=== PATIENT | female | born 1980 | race African-American/Black ===

== ENCOUNTER → 2020-06-21 | Outpatient (CLI) | payer OTHER ==
[2020-06-21 16:29] LABS: BASO # 0.1 10^3/uL (0.0-0.2); BASO % 0.9 % (0.0-1.0); EOS # 0.3 10^3/uL (0.0-0.5); EOS % 3.7 % (0.0-3.0); HEMATOCRIT 35.9 % (36.0-47.0); HEMOGLOBIN 11.6 g/dl (12.0-15.5); LYMPH # 2.1 10^3/uL (1.5-5.0); LYMPH % 31.1 % (24.0-44.0); MEAN CORPUSCULAR HEMOGLOBIN 24.9 pg (27.0-33.0); MEAN CORPUSCULAR HGB CONC 32.3 g/dl (32.0-36.5); MONO # 0.7 10^3/uL (0.0-0.8); MONO % 10.5 % (0.0-5.0); NEUTROPHILS # 3.6 10^3/uL (1.5-8.5); NEUTROPHILS % 53.5 % (36.0-66.0); PLATELET COUNT, AUTOMATED 269 10^3/uL (150-450); RED BLOOD COUNT 4.66 10^6/uL (4.00-5.40); WHITE BLOOD COUNT 6.8 10^3/uL (4.0-10.0)
[2020-06-21 17:08] LABS: BLOOD UREA NITROGEN 11 MG/DL (7-18); CALCIUM LEVEL 9.1 MG/DL (8.5-10.1); CARBON DIOXIDE LEVEL 26 MEQ/L (21-32); CHLORIDE LEVEL 106 MEQ/L (98-107); CREATININE FOR GFR 0.98 MG/DL (0.55-1.30); FERRITIN 17 NG/ML (8-252); FOLATE 13.2 NG/ML; FREE T4 0.96 NG/DL (0.76-1.46); GLOMERULAR FILTRATION RATE > 60.0 (>60); GLUCOSE, FASTING 67 MG/DL (70-100); IRON (FE) 68 UG/DL (50-170); POTASSIUM SERUM 4.3 MEQ/L (3.5-5.1); SODIUM LEVEL 137 MEQ/L (136-145); TOTAL IRON BINDING CAPACITY 357 UG/DL (250-450); VITAMIN B12 LEVEL 814 PG/ML
== END ==
LOC: M LAB 15:35
PROVIDERS: ATTEND Nurse Practitioner Family
DX: R42 Dizziness and giddiness (principal)

== ENCOUNTER → 2020-12-05 | Outpatient (REF) | payer OTHER | LOC: M LAB REF 17:16 | PROVIDERS: ATTEND Physician Assistant Medical | DX: Z12.4 Encounter for screening for malignant neoplasm of cervix (principal) ==

== ENCOUNTER → 2020-12-09 | Outpatient (CLI) | payer OTHER ==
--- NOTE | 2020-12-09 14:13 | REPMRS ---
Patient History The patient states she had a clinical breast exam in 11/2020 Baseline Mammogram Patient had first child at age 38. No known family history of cancer. Digital Woman Screen Mammo: December 09, 2020 - Exam #: [id number] Bilateral CC and MLO view(s) were taken. Technologist: Sharla Orellana, Technologist No prior studies available for comparison. FINDINGS: There are scattered fibroglandular densities. The Volpara volumetric breast density category is: B. There is no evidence of dominant mass, architectural distortion, or grouped microcalcification typical of malignancy. 3-D tomosynthesis shows no additional findings. Assessment: BI-RADS/ACR category 1 mammogram. Negative Mammogram. Recommendation Routine screening mammogram of both breasts in 1 year (for women over age 40). This patient's [facility] Lifetime Breast Cancer RIsk is estimated at 13.6 %. This mammogram was interpreted with the aid of an FDA-approved computer-aided dectection system. Electronically Signed By: Bill Serrato MD 12/09/20 4624
== END ==
LOC: M WHC 12:30
PROVIDERS: ATTEND Physician Assistant Medical
DX: Z12.31 Encounter for screening mammogram for malignant neoplasm of breast (principal)

== ENCOUNTER → 2021-02-15 | Outpatient (REF) ==
[2021-02-16 05:07] LABS: HERPES ZOSTER, VARICELLA IgG 1285 index (Immune >165); RUBEOLA IgG ANTIBODY >300.0 AU/mL (Immune >16.4)
== END ==
LOC: M LAB 12:11
PROVIDERS: ATTEND Nurse Practitioner Adult Health
DX: Z02.89 Encounter for other administrative examinations (principal)

== ENCOUNTER 2021-08-26 06:49 | Emergency (ER) | payer OTHER ==
[~2021-08-26] VITALS: Ht 157.5 cm; Wt 56.8 kg
--- OUTSIDE RECORDS SUMMARY | 2021-08-26 06:56 | CCD ---
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 Name Role Phone Amariancostgabo Glynn Wilma PA-C Unavailable Unavailabl e Petrancosta, Glynn Wilma PA-C Unavailable Unavailabl e Petrancosta, Glynn Wilma PA-C Unavailable Unavailabl e Petrancosta, Glynn Wilma PA-C Unavailable Unavailabl e Petrancosta, Glynn Wilma PA-C Unavailable Unavailabl e Petrancosta, Glynn Wilma PA-C Unavailable Unavailabl e Petrancosta, Glynn Wilma PA-C Unavailable Unavailabl e Petrancosta, Glynn Wilma PA-C Unavailable Unavailabl e Petrancosta, Glynn Wilma PA-C Unavailable Unavailabl e Petrancosta, Glynn Wilma PA-C Unavailable Unavailabl e Petrancosta, Glynn Wilma PA-C Unavailable Unavailabl e Petrancosta, Glynn Wilma PA-C Unavailable Unavailabl e Petrancosta, Glynn Wilma PA-C Unavailable Unavailabl e Petrancosta, Glynn Wilma PA-C Unavailable Unavailabl e Petrancosta, Glynn Wilma PA-C Unavailable Unavailabl e Petrancosta, Glynn Wilma PA-C Unavailable Unavailabl e Petrancosta, Glynn Wilma PA-C Unavailable Unavailabl e Petrancosta, Glynn Wilma PA-C Unavailable Unavailabl e Petrancosta, Glynn Wilma PA-C Unavailable Unavailabl e Petrancosta, Glynn Wilma PA-C Unavailable Unavailabl e Petrancosta, Glynn Wilma PA-C Unavailable Unavailabl e Petrancosta, Nelson Cortésa PA-C Unavailable Unavailabl e Petrancosta, Nelson Dillon PA-C Unavailable Unavailabl e Petrancosta, Nelson Cortésa PA-C Unavailable Unavailabl e Petrancosta, Nelson Dillon PA-C Unavailable Unavailabl e Re-disclosure Warning The records that you are about to access may contain information from federally-assisted alcohol or drug abuse programs. If such information is present, then the following federally mandated warning applies: This information has been disclosed to you from records protected by federal confidentiality rules (42 CFR part 2). The federal rules prohibit you from making any further disclosure of this information unless further disclosure is expressly permitted by the written consent of the person to whom it pertains or as otherwise permitted by 42 CFR part 2. A general authorization for the release of medical or other information is NOT sufficient for this purpose. The Federal rules restrict any use of the information to criminally investigate or prosecute any alcohol or drug abuse patient.The records that you are about to access may contain highly sensitive health information, the redisclosure of which is protected by Article 27-F of the [facility] Public Health law. If you continue you may have access to information: Regarding HIV / AIDS; Provided by facilities licensed or operated by the [facility] Office of Mental Health; or Provided by the [facility] Office for People With Developmental Disabilities. If such information is present, then the following [facility] mandated warning applies: This information has been disclosed to you from confidential records which are protected by state law. State law prohibits you from making any further disclosure of this information without the specific written consent of the person to whom it pertains, or as otherwise permitted by law. Any unauthorized further disclosure in violation of state law may result in a fine or fdc sentence or both. A general authorization for the release of medical or other information is NOT sufficient authorization for further disc losure. Encounters Encounter Providers Location Date Indications Data Source(s ) Outpatient Attender: Wilma Vinay MARTINEZ Main Office 12/05/2020 02:00:00 PM EDT [facility] ([facility] Immunizations Vaccine Date Status Description Data Source(s) COVID-19 VACCINE Moderna 01/02/2021 12:00:00 AM EDT completed [facility]IS Vaccine Series Complete: NOThis Data was Submitted to [facility] Via [employer]. COVID-19 VACCINE Moderna 01/02/2021 12:00:00 AM EDT completed [facility]IS Vaccine Series Complete: NOThis Data was Submitted to [facility] Via [employer]. COVID-19 VACCINE Moderna 01/02/2021 12:00:00 AM EDT completed [facility]IS Vaccine Series Complete: NOThis Data was Submitted to [facility] Via [employer]. COVID-19 VACCINE Moderna 01/02/2021 12:00:00 AM EDT completed NYSIIS Vaccine Series Complete: NOThis Data was Submitted to [facility] Via [employer]. Medications Medication Brand Name Start Date Product Form Dose Route Admi nistrative Instructions Pharmacy Instructions Status Indications Reaction Description Data Source(s) No Active Medications 12/05/2020 12:00:00 AM EDT active [facility] ([facility] Atovaquone 250 MG / proguanil hydrochloride 100 MG Ora l Tablet Atovaquone/Proguanil Hydrochloride 06/21/2020 12:00:00 AM EDT ORAL completed [facility] Typhoid Vaccine Live Ty21a [id number] UN T Delayed Release Oral Capsule [Vivotif] Vivotif 06/21/2020 12:00:00 AM EDT completed [facility] ([facility] Insurance Providers Payer name Policy type / Coverage type Policy ID Covered democrat ID Covered democrat's relationship to bennett Policy Bennett Plan Information [facility] [id number] SP [id number] [facility] [id number] SP [id number] Problems, Conditions, and Diagnoses No Information Surgeries/Procedures Procedure Description Date Indications Data Source(s) Mammogram 12/09/2020 12:00:00 AM EDT M [facility] ([facility] Results ID Date Data Source [id number] 08/17/2021 12:00:00 AM EST [facility] Name Value Range Interpretation Code Description Data Erin rce(s) Supporting Document(s) SARS coronavirus 2 Ag NEGATIVE [facility]OH [facility] and reported by [facility]. ID Date Data Source -[id number] 08/01/2021 12:00:00 AM EST [facility] Name Value Range Interpretation Code Description Data Erin rce(s) Supporting Document(s) SARS coronavirus 2 Ag NEGATIVE [facility]OH This lab was ordered by [facility] and reported by [facility]. ID Date Data Source [id number]/25/2021 12:00:00 AM EST [facility] Name Value Range Interpretation Code Description Data Erin rce(s) Supporting Document(s) SARS coronavirus 2 Ag NEGATIVE [facility]OH This lab was ordered by [facility] and reported by [facility]. ID Date Data Source 07/11/2021 12:00:00 AM EDT [facility] Name Value Range Interpretation Code Description Data Erin rce(s) Supporting Document(s) SARS coronavirus 2 Ag NEGATIVE [facility]OH This lab was ordered by [facility] and reported by [facility]. ID Date Data Source 07/06/2021 12:00:00 AM EDT [facility] Name Value Range Interpretation Code Description Data Erin rce(s) Supporting Document(s) SARS coronavirus 2 Ag NEGATIVE [facility] This lab was ordered by [facility] and reported by [facility]. ID Date Data Source 07/04/2021 12:00:00 AM EDT [facility] Name Value Range Interpretation Code Description Data Erin rce(s) Supporting Document(s) SARS coronavirus 2 Ag NEGATIVE [facility] This lab was ordered by [facility] and reported by [facility]. ID Date Data Source -[id number]/27/2021 12:00:00 AM EDT [facility] Name Value Range Interpretation Code Description Data Erin rce(s) Supporting Document(s) SARS coronavirus 2 Ag NEGATIVE [facility] This lab was ordered by [facility] and reported by [facility]. ID Date Data Source [id number] 06/20/2021 12:00:00 AM EDT [facility] Name Value Range Interpretation Code Description Data Erin rce(s) Supporting Document(s) SARS coronavirus 2 Ag NEGATIVE [facility]OH This lab was ordered by [facility] and reported by [facility]. ID Date Data Source 06/13/2021 12:00:00 AM EDT [facility] Name Value Range Interpretation Code Description Data Erin rce(s) Supporting Document(s) SARS coronavirus 2 Ag NEGATIVE [facility] This lab was ordered by [facility] and reported by [facility]. ID Date Data Source 06/06/2021 12:00:00 AM EDT [facility] Name Value Range Interpretation Code Description Data Erin rce(s) Supporting Document(s) SARS coronavirus 2 Ag NEGATIVE [facility] This lab was ordered by [facility] and reported by [facility]. ID Date Data Source 05/25/2021 12:00:00 AM EDT [facility] Name Value Range Interpretation Code Description Data Erin rce(s) Supporting Document(s) SARS coronavirus 2 Ag NEGATIVE [facility]OH This lab was ordered by [facility] and reported by [facility]. ID Date Data Source 02/23/2021 12:00:00 AM EDT [facility]OH Name Value Range Interpretation Code Description Data Erin rce(s) Supporting Document(s) SARS coronavirus 2 Ag NEGATIVE [facility] This lab was ordered by [facility] and reported by [facility]. ID Date Data Source 02/20/2021 12:00:00 AM EDT [facility] Name Value Range Interpretation Code Description Data Erin rce(s) Supporting Document(s) SARS coronavirus 2 Ag NEGATIVE [facility] This lab was ordered by [facility] and reported by [facility]. ID Date Data Source [id number]/14/2021 12:00:00 AM EDT [facility] Name Value Range Interpretation Code Description Data Erin rce(s) Supporting Document(s) SARS coronavirus 2 Ag NEGATIVE [facility] This lab was ordered by [facility] and reported by [facility]. ID Date Data Source [id number] 12/05/2020 02:44:00 PM EDT [facility] Name Value Range Interpretation Code Description Data Erin rce(s) Supporting Document(s) Cytology Cervical or vaginal smear or scraping study Laboratory lisset t result [facility] ([facility] Addendum 1 Entered: 12/12/2020-1432 The HPV test is positive for one or more high risk types, test performed at [address] [address]. 12/12/20201431 Addendum Signed____ MAJO SERRA CT (ASCP) 12/12/2020 1440 SPECIMEN ADEQUACY: Satisfactory for evaluation CATEGORIZATION: Negative for Intraepithelial Lesion or Malignancy Infection: Reactive Changes: SQUAMOUS CELL: GLANDULAR CELL: COMMENTS: HPV test submitted. The cervical PAP smear is a screening test. Both false positive and false negative results occur. A negative PAP smear does not preclude dysplasia or malignancy. Clinical correlation is required in every case. Further diagnostic procedures may be clinically indicated even if a PAP smear is interpreted as within normal limits. 12/06/20208[address](ASCP) 12/06/2020 0913 ID Date Data Source [id number] 12/05/2020 10:00:00 AM EDT [facility] ([facility] Name Value Range Interpretation Code Description Data Erin rce(s) Supporting Document(s) HPV Screen (High Risk Only) Laboratory test result Abnormal (applies to non- numeric results) [facility] ([facility] This nucleic acid amplification test det ects fourteen high- risk HPV types (16,18,31,33,35,39,45,51,52,56,58,59,66,68) without differentiation. Performed at: RN - [facility] [address] [id number] Director Community Center: Amy Miranda MD, Phone: [phone] Procedure Social History Code Duration Value Status Description Data Source(s ) Smoking 12/05/2020 12:00:00 AM EDT Patient has never smoked co mpleted Patient has never smoked [facility] Vital Signs ID Date Data Source UNK Name Value Range Interpretation Code Description Data Source(s) Body height 61 [in_i] 61 [in_i] [facility] 5'1" Body weight 151.12 [lb_av] 151.12 [lb_av] [facility] T ([facility] Oxygen saturation in Arterial blood by Pulse oximetry 98 % 98 % [facility] [place] body weight 105 [lb_av] 105 [lb_av] [facility] T ([facility] Body mass index (BMI) [Ratio] 28.6 kg/m2 28.6 k g/m2 [facility] Systolic blood pressure 97 mm[Hg] 97 mm[Hg] M [facility] ([facility] Diastolic blood pressure 60 mm[Hg] 60 mm[Hg] [facility] Heart rate 80 /min 80 /min [facility] Body temperature 97.1 [degF] 97.1 [degF] [facility] Respiratory rate 16 /min 16 /min [facility] ( [facility]
[2021-08-26] MEDS ORDERED: PROPARACAINE 0.5% OPHTH SOL 15ML OS ONE (07:40)
[2021-08-26] MEDS ORDERED: FLUORESCEIN OPHTH 1 MG STRIP OS ONE (07:40)
[2021-08-26] MEDS ORDERED: PERCOCET 5MG/325MG TAB PO ONE (07:45)
--- OUTSIDE RECORDS SUMMARY | 2021-08-26 07:48 | CCD ---
Author Author [facility] Organization [facility] Address Unknown Phone Unavailable Care Team Providers Care Loan Teller Name Role Phone Amariancostgabo Mason Wilma PA-C Unavailable Unavailabl e Petrancosta, Mason Wilma PA-C Unavailable Unavailabl e Petrancosta, Mason Wilma PA-C Unavailable Unavailabl e Petrancosta, Mason Wilma PA-C Unavailable Unavailabl e Petrancosta, Mason Wilma PA-C Unavailable Unavailabl e Petrancosta, Mason Wilma PA-C Unavailable Unavailabl e Petrancosta, Mason Wilma PA-C Unavailable Unavailabl e Petrancosta, Mason Wilma PA-C Unavailable Unavailabl e Petrancosta, Mason Wilma PA-C Unavailable Unavailabl e Petrancosta, Mason Wilma PA-C Unavailable Unavailabl e Petrancosta, Mason Wilma PA-C Unavailable Unavailabl e Petrancosta, Mason Wilma PA-C Unavailable Unavailabl e Petrancosta, Mason Wilma PA-C Unavailable Unavailabl e Petrancosta, Mason Wilma PA-C Unavailable Unavailabl e Petrancosta, Mason Wilma PA-C Unavailable Unavailabl e Petrancosta, Mason Wilma PA-C Unavailable Unavailabl e Petrancosta, Mason Wilma PA-C Unavailable Unavailabl e Petrancosta, Mason Wilma PA-C Unavailable Unavailabl e Petrancosta, Mason Wilma PA-C Unavailable Unavailabl e Petrancosta, Mason Wilma PA-C Unavailable Unavailabl e Petrancosta, Mason Wilma PA-C Unavailable Unavailabl e Petrancosta, Nelson [...] is protected by Article 27-F of the [facility] Public Health law. If you continue you may have access to information: Regarding HIV / AIDS; Provided by facilities licensed or operated by the [facility] Office of Mental Health; or Provided by the [facility] Office for People With Developmental Disabilities. If such information is present, then the following [facility] mandated warning applies: This information has been [...] law may result in a fine or [place] health [place] sentence or both. A general authorization for [...] Series Complete: NOThis Data was Submitted to [facility] Via [employer]. COVID-19 VACCINE Moderna 01/02/2021 12:00:00 AM EDT completed [facility]SIIS Vaccine Series Complete: NOThis Data was Submitted to [facility] Via [employer]. COVID-19 VACCINE Moderna 01/02/2021 12:00:00 AM EDT completed [facility]IS Vaccine Series Complete: NOThis Data was Submitted to [facility] Via [employer]. COVID-19 VACCINE Moderna 01/02/2021 12:00:00 AM EDT completed [facility]SIIS Vaccine Series Complete: NOThis Data was Submitted to [facility] Via [employer]. Medications Medication Brand Name Start Date Product Form Dose Route Admi nistrative Instructions Pharmacy Instructions Status Indications Reaction Description Data Source(s) No Active Medications 12/05/2020 12:00:00 AM EDT active [facility] Atovaquone 250 MG / proguanil hydrochloride 100 MG Ora l Tablet Atovaquone/Proguanil Hydrochloride 06/21/2020 12:00:00 AM EDT ORAL completed [facility] Typhoid Vaccine Live Ty21a [id number] UN T Delayed Release Oral Capsule [Vivotif] Vivotif 06/21/2020 12:00:00 AM EDT completed [facility] Insurance Providers Payer name Policy type / Coverage type Policy ID Covered libertarian ID Covered libertarian's relationship to bennett Policy Bennett Plan Information [facility] [id number] SP [id number] [facility] [id number] SP [id number] Problems, Conditions, and Diagnoses No Information Surgeries/Procedures Procedure Description Date Indications Data Source(s) Mammogram 12/09/2020 12:00:00 AM EDT M [facility] ([facility] Results ID Date Data Source [id number] 08/17/2021 12:00:00 AM EST [facility] Name Value Range Interpretation Code Description Data Erin rce(s) Supporting Document(s) SARS coronavirus 2 Ag NEGATIVE [facility] and [facility] by [facility]. ID Date Data Source -[id number] 08/01/2021 12:00:00 AM EST [facility] Name Value Range Interpretation Code Description Data Erin rce(s) Supporting Document(s) SARS coronavirus 2 Ag NEGATIVE [facility] This lab was ordered by [facility] and reported by [facility]. ID Date Data Source [id number]/25/2021 12:00:00 AM EST [facility] Name Value Range Interpretation Code Description Data Erin rce(s) Supporting Document(s) SARS coronavirus 2 Ag NEGATIVE [facility] This lab was ordered by [facility] and reported by [facility]. ID Date Data Source 07/11/2021 12:00:00 AM EDT [facility] Name Value Range Interpretation Code Description Data Erin rce(s) Supporting Document(s) SARS coronavirus 2 Ag NEGATIVE [facility] This lab was ordered by [facility] and reported by [facility]. ID Date Data Source 07/06/2021 12:00:00 AM EDT [facility] Name Value Range Interpretation Code Description Data Erin rce(s) Supporting Document(s) SARS coronavirus 2 Ag NEGATIVE [facility] This lab was ordered by [facility] and reported by [facility]. ID Date Data Source 07/04/2021 12:00:00 AM EDT [facility] Name Value Range Interpretation Code Description Data Erin rce(s) Supporting Document(s) SARS coronavirus 2 Ag NEGATIVE [facility] This lab was ordered by [facility] and reported by [facility]. ID Date Data Source -[id number]/27/2021 12:00:00 AM EDT [facility] Name Value Range Interpretation Code Description Data Erin rce(s) Supporting Document(s) SARS coronavirus 2 Ag NEGATIVE [facility] This lab was ordered by [facility] and reported by [facility]. ID Date Data Source [id number] 06/20/2021 12:00:00 AM EDT [facility] Name Value Range Interpretation Code Description Data Erin rce(s) Supporting Document(s) SARS coronavirus 2 Ag NEGATIVE [facility] This lab was ordered by [facility] and reported by [facility]. ID Date Data Source 06/13/2021 12:00:00 AM EDT [facility] Name Value Range Interpretation Code Description Data Erin rce(s) Supporting Document(s) SARS coronavirus 2 Ag NEGATIVE [facility] This lab was ordered by [facility] and reported by [facility]. ID Date Data Source 06/06/2021 12:00:00 AM EDT [facility] Name Value Range Interpretation Code Description Data Erin rce(s) Supporting Document(s) SARS coronavirus 2 Ag NEGATIVE [facility] This lab was ordered by [facility] and reported by [facility]. ID Date Data Source 05/25/2021 12:00:00 AM EDT [facility] Name Value Range Interpretation Code Description Data Erin rce(s) Supporting Document(s) SARS coronavirus 2 Ag NEGATIVE [facility] This lab was ordered by [facility] and reported by [facility]. ID Date Data Source 02/23/2021 12:00:00 AM EDT [facility] Name Value Range Interpretation Code Description Data Erin rce(s) Supporting Document(s) SARS coronavirus 2 Ag NEGATIVE [facility] This lab was ordered by [facility] and reported by [facility]. ID Date Data Source 02/20/2021 12:00:00 AM EDT [facility] Name Value Range Interpretation Code Description Data Erin rce(s) Supporting Document(s) SARS coronavirus 2 Ag NEGATIVE [facility] This lab was ordered by [facility] and reported by [facility]. ID Date Data Source [id number]/14/2021 12:00:00 AM EDT [facility] Name Value Range Interpretation Code Description Data Erin rce(s) Supporting Document(s) SARS coronavirus 2 Ag NEGATIVE [facility] This lab was ordered by [facility] and reported by [facility]. ID Date Data Source [id number] 12/05/2020 02:44:00 PM EDT [facility] Name Value Range Interpretation Code Description Data Erin rce(s) Supporting Document(s) Cytology Cervical or vaginal smear or scraping study Laboratory lisset t result [facility] ([facility] Addendum 1 Entered: 12/12/2020-1432 The HPV test is positive for one or more high risk types, test performed at [address] [address]. 12/12/20201431 Addendum Signed____ MAJO SERRA CT (ASCP) [...] CT(ASCP) 12/06/2020 0913 ID Date Data Source [id number] 12/05/2020 10:00:00 AM EDT [facility] Name Value Range Interpretation Code Description Data Erin rce(s) Supporting Document(s) HPV Screen (High Risk Only) Laboratory test result Abnormal (applies to non- numeric results) [facility] ([facility] This nucleic acid amplification test det ects fourteen high- risk HPV types (16,18,31,33,35,39,45,51,52,56,58,59,66,68) without differentiation. Performed at: RN - [facility] [id number] [employer] Liaison Officer: Amy Miranda MD, Phone: [phone] Procedure Social History Code Duration Value Status Description Data Source(s ) Smoking 12/05/2020 12:00:00 AM EDT Patient has never smoked co mpleted Patient has never smoked [facility] Vital Signs ID Date Data Source UNK Name Value Range Interpretation Code Description Data Source(s) Body height 61 [in_i] 61 [in_i] [facility] 5'1" Systolic blood pressure 97 mm[Hg] 97 mm[Hg] M [facility] ([facility] Diastolic blood pressure 60 mm[Hg] 60 mm[Hg] [facility] Heart rate 80 /min 80 /min [facility] Body temperature 97.1 [degF] 97.1 [degF] [facility] Respiratory rate 16 /min 16 /min [facility] ( [facility] Body weight 151.12 [lb_av] 151.12 [lb_av] [facility] T ([facility] Oxygen saturation in Arterial blood by Pulse oximetry 98 % 98 % [facility] [place] body weight 105 [lb_av] 105 [lb_av] [facility] ([facility] Body mass index (BMI) [Ratio] 28.6 kg/m2 28.6 k g/m2 [facility]
[2021-08-26 09:18] VITALS: BP 118/58
[2021-08-26] MEDS ORDERED: POLYOPD OS (10:17)
[2021-08-26] MEDS ORDERED: PRED1SUS30 OS (10:17)
== END 2021-08-26 10:25 | disposition home or self-care (01) ==
LOC: M ED 06:49
DX: H10.212 Acute toxic conjunctivitis, left eye (principal); Z88.1 Allergy status to other antibiotic agents

== ENCOUNTER 2021-09-04 08:27 | Emergency (ER) | payer OTHER ==
[~2021-09-04] VITALS: Ht 157.5 cm; Wt 59.5 kg
[~2021-09-04 08:27] MED LIST: POLYOPD OS; PRED1SUS30 OS
[2021-09-04 08:35] VITALS: BP 120/81
[2021-09-04] MEDS ORDERED: FLUORESCEIN OPHTH 1 MG STRIP OS ONE (09:25)
[2021-09-04] MEDS ORDERED: TETRACAINE 0.5% OPHTH SOLN 4ML OS ONE (09:25)
== END 2021-09-04 10:40 | disposition home or self-care (01) ==
LOC: M ED 08:27
DX: H10.212 Acute toxic conjunctivitis, left eye (principal); Z77.098 Contact with and (suspected) exposure to other hazardous, chiefly nonmedicinal, chemicals; Z88.8 Allergy status to other drugs, medicaments and biological substances

== ENCOUNTER 2022-04-04 09:16 | Emergency (ER) | payer OTHER ==
[~2022-04-04] VITALS: Ht 157.5 cm; Wt 60.4 kg
[2022-04-04 12:22] LABS: RSV AMPLIFICATION NEGATIVE (NEGATIVE)
[2022-04-04] MEDS ORDERED: BENZ200C70 PO (13:08)
[2022-04-04 13:15] VITALS: BP 109/65
== END 2022-04-04 13:16 | disposition home or self-care (01) ==
LOC: M ED 09:16
DX: R09.1 Pleurisy (principal); J06.9 Acute upper respiratory infection, unspecified; Z88.1 Allergy status to other antibiotic agents

== ENCOUNTER → 2022-07-05 | Outpatient (REF) ==
[~2022-07-05] MED LIST changes: +BENZ200C70 PO
== END ==
LOC: M LABSMTC 09:48
PROVIDERS: ATTEND Family Medicine
DX: Z11.52 Encounter for screening for COVID-19 (principal)